=== PATIENT | male | born 1990 | race Caucasian/White ===

== ENCOUNTER 2025-01-28 08:47 | Emergency (ER) | payer BC, SELFPAY ==
[2025-01-28 08:55] VITALS: BP 150/92; PULSE 92; RESP 18; TEMP 36.8; O2SAT 99
--- NOTE | 2025-01-28 09:07 | ED.WOUNDLAC ---
HPI - Wound/Laceration General Chief Complaint: Wound/Laceration Stated Complaint: Puncture wound Right Foot Time Seen by Provider: 01/28/25 09:08 Source: patient Mode of arrival: ambulatory Limitations: no limitations History of Present Illness HPI narrative: 35 y/o male presented for c/o pain and wound to the bottom of the right foot sustained last night. States while walking outside barefoot he stepped on a garden rake. Says he cleansed the site with soap and water after the injury. Denies decreased ROM or decreased sensation. No bleeding on arrival. Unsure of last tetanus. Related Data Allergies Allergy/AdvReac Type Severity Reaction Status Date / Time No Known Allergies Allergy Verified 01/28/25 09:06 Review of Systems Review of Systems: [facility] Comments At time of signature, I have reviewed and agree with nursing past medical, surgical, social and family history unless otherwise noted. Please see nursing chart for further information. There is no relevant family history pertinent to the presenting complaint Exam Narrative: GENERAL: Well-appearing EYES: conjunctivae clear, and EOMI. ENT: Mucous membranes moist. Oropharynx without edema, erythema or lesions. CHEST: Clear to auscultation. HEART: Regular rate and rhythm. SKIN: Warm, dry. Right plantar foot with 1cm diameter round skin avulsion, no active drainage or indication for wound closure. Tender. CMS intact. NEURO: Alert and oriented x3. Course Course Emergency Course: Patient is aware of diagnosis, understands and agrees to treatment plan. Anticipatory guidance given. Patient agrees to follow-up as directed and is aware of reasons to seek care at the emergency department. Portions of this record may have been created with voice recognition software Level of Care: Express Care Visit Vital Signs Vital signs: Vital Signs Temperature 98.2 F 01/28/25 08:55 Pulse Rate 92 01/28/25 08:55 Respiratory Rate 18 01/28/25 08:55 Blood Pressure 150/92 H 01/28/25 08:55 Pulse Oximetry 99 01/28/25 08:55 Oxygen Delivery Room Air 01/28/25 08:55 Temperature 98.2 F 01/28/25 08:55 Pulse Rate 92 01/28/25 08:55 Respiratory Rate 18 01/28/25 08:55 Blood Pressure 150/92 H 01/28/25 08:55 Pulse Oximetry 99 01/28/25 08:55 Oxygen Delivery Room Air 01/28/25 08:55 Reviewed MDM - Wound/Laceration MDM Narrative Medical decision making narrative: Discussed physical exam findings c/w abrasion to the plantar surface right foot, no active drainage, no indication for wound closure. rx abx. Tetanus updated today. Wound cleansed in clinic, GERONIMO and bandaid applied. Advised supportive measures and signs/symptoms to go to the ER. Pt is appropriate for outpt treatment and f/u. Differential Diagnosis Differential diagnosis: Likely laceration, abrasion and avulsion of skin Discharge Plan Discharge Clinical Impression: Abrasion Patient Disposition: Home Condition: Stable Instructions: Antibiotic Form, Abrasion (ED) Additional Instructions: Keep the area clean and dry - cleanse at least daily with warm water and mild soap and allow to fully dry. Ok to apply neosporin to the site Keep it open to air (no bandages unless at risk for contamination or if the site is draining) Tylenol and ibuprofen every 8 hours for pain. Keep your foot up, rest. Do not walk barefoot. Take the antibiotic as directed Tetanus updated today. Watch for worsening symptoms including pain, redness, swelling, streaking, pus/drainage, fever. Go to the ER with any of these symptoms or concerns. Follow up with primary care provider in 1-2 weeks Patient Language: [place] Prescriptions: New cephalexin 500 mg capsule 500 mg PO Q8H 7 Days Qty: 21 0RF ibuprofen 800 mg tablet 800 mg PO TID PRN (Reason: pain) Qty: 15 0RF Follow-up/Referrals: PHYSICIAN,INDUSTRIAL MAINTENANCE MANAGER [Primary Care Provider] - Stand Alone Forms: Work/School Release IP Time of Disposition: :
[2025-01-28] MEDS: TETANUS,DIPHTHERIA,AC PERTUSSIS ADULT (0.5 ML) BOOSTRIX IM (09:17)
--- OUTSIDE RECORDS SUMMARY | 2025-01-28 09:17 | XMS_ITS | Continuity of Care Document ---
Author Organization [facility] Address [address] [place] [address] Phone Care Team Providers Care Gun Stock Maker Name Role Phone Duc Stafford MD Unavailable Unavailable Allergies, Adverse Reactions, Alerts Substance Reaction Status Criticality No Known Allergies Active No Inform ation Medications Medication Instructions Dosage Effective Dates (start - stop) Status Comments acyclovir 400 mg tablet take 1 tablet by oral route 2 times daily for recurrent herpes - Active acyclovir 400 mg tablet take 1 tablet by oral route 2 times daily for recurrent herpes - No Longer Active Procedures Procedure Date OFFICE/OUTPATIENT VISIT, EST OFFICE/OUTPATIENT VISIT, EST OFFICE/OUTPATIENT VISIT, EST OFFICE/OUTPATIENT VISIT, [facility] Advance Directives Directive Yes / No Effective Date File Name No Information Encounters Encounter Description Practice Location Reason(s) For Visit Diagnoses Date Provider Providers Copied on Encounter OFFICE/OUTPA TIENT VISIT, [facility], [address] [place] [address], [id number], tel:[phone] [facility] CHECK UP (chief complaint) Wellness Visit (chief complaint) Recurrent HSV (herpes simplex virus)Encounter for adult health maintenance exam w/ abnormal findingsEncounter for screening for cardiovascular disordersEncounter for screening for diabetes mellitusTobacco chew use 9 Rivera Xavier. [address] [place] [address], [address], [place]. tel: [phone] OFFICE/OUTPA TIENT VISIT, [facility], [address] [place] [address], [facility], tel: [phone] [facility] MED REFILLS (chief complaint) Needs refill of Acyclovir (chief complaint) Herpesviral infection, unspecified 7 Rivera Xavier. [address] [place] [address], [address] [place] [address]. tel: [phone] OFFICE/OUTPA TIENT VISIT, [facility], [address] [place] [address], [facility], tel: [phone] [facility] sick (chief complaint) Acute sinusitis, unspecified 6 Rivera Xavier. [address] [place] [address], [facility], . tel: [phone] OFFICE/OUTPA TIENT VISIT, [facility], [address] [place] [address], [facility], tel: [phone] [facility] eye problem (chief complaint) Recurrent herpes simplex 4 [facility] [address] [place] [address], [facility], . tel: [phone] Family History Family Member Type Diagnosis Age At Onset Father Problem (finding) malignant neoplasm of l casey Paternal grandmother Problem (finding) Cancer, unknown Maternal grandfather Problem (finding) malignant neopl asm of lung Payers Payer name Insurance type Covered alliance party ID Authoriza tion(s) No Information Social History Type Description Quantity Date Captured Comments Alcohol Use Details beer 6 pk of beer bi-weekly Caffeine Use Details soda 24 oz per day Tobacco Use Status Never smoked tobacco 2018 Smoking Status Never smoker Non-Smoking Tobacco Use Details : No Details Available : No Details Available Sex Male Vital Signs Date / Time: Height Weight BMI Pulse Rate Blood Pressure Temperature Respiratory Rate Body Surface Area Head Circumference Head Circ. Percentile Wt./Taye. Percentile BMI percentile Pulse Ox Inhaled Ox 3:13 PM 69.00 in 76.929 kg (169.60 lbs) 25.0 5 kg/m eter (2) 69 /min 122/80 mm[Hg] 97.80 F 18 /min 98 % Chief Complaint And Reason For Visit From encounter dated '06/26/2019 15:01'. CHECK UP (chief complaint). Description: Has not been seen for 2 years, pt. now has health insurance and is here for a check up. Pt. states he is not having any problems. Wellness Visit (chief complaint). Description: Diet, exercise and activity stated to be pretty good. Colon cancer screening and PSA screening not indicated. He wears seatbelt while in a vehicle. He is a non smoker , chews tobacco, and consumes alcohol about 12 beers a week. Explained the importanceof avoidance of smoking, chewing tobacco, illicit drug use. Discussed safety at home. Discussed avoidance of unhealthy habits and accident prevention. Discussed the benefit of routine eye exam and dental follow up. Recommend proper weight management. BMI 25 with clothes on. 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 No active lesion at this point Reason For Referral Reason For Referral No Information Plan Of Treatment Date Type Action Status Future Order: Lab Order LIPID PA BHARGAVI ([id number]), Sent on: Sent Future Order: Lab Order CMP ([id number]), Se nt on: Sent History Of Present Illness Encounter Date Complaint History Of Prese nt Illness CHECK UP Has not been see n for 2 years, pt. now has health insurance and is here for a check up. Pt. states he is not having any problems. Wellness Visit Diet, exercise a nd activity stated to be pretty good. Colon cancer screening and PSA screening not indicated. He wears seatbelt while in a vehicle. He is a non smoker , chews tobacco, and consumes alcohol about 12 beers a week. Explained the importance of avoidance of smoking, chewing tobacco, illicit drug use. Discussed safety at home. Discussed avoidance of unhealthy habits and accident prevention. Discussed the benefit of routine eye exam and dental follow up. Recommend proper weight management. BMI 25 with clothes on. 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 No active lesion at this point MED REFILLS Needs refill of Acyclovir Pt her e to see Dr for refill of medication. States he is doing okay otherwise.Patient has history of recurrent herpetic lesions on the face. States that when lesions about the start, he can feel some numbness or thickness on the right side around his nose. In the past, the rashes has been extensive and actually involved his left eye. He has been taking acyclovir 400 mg twice a day supposedly for prophylactic treatment. States that his symptoms are not often enough that he needed the medication that often. We did discuss proper medication intake during an acute episode. I have asked him to come over if his symptoms are extensive.Patient is currently unemployed but is applying at the [employer]. He is an occasional drinker, no tobacco use. sick Non productive c ough, right ear feels hot, chills and fever. Sxs started 5 days ago. eye problem Pt here to see D r for problem with cold symptoms. Started gumaro 1 week ago and now has a cold sore inside nose. Was taking acylovir and ran out of medicine. Afraid it will get worse if he doesn't continue treatment.His Herpes simplex actually got on his eye one time when he was around 8 yo Functional Status Date Functional Assessmen t Pain Score 0/10 Instructions Date Instruction Additional Infor mation Proper diet, exercis e and activity. Weight management Related to Encounter for adult health maintenance exam w/ abnormal findings Avoid unhealthy habi ts. Proper ETOH intake Related to Encounter for adult health maintenance exam w/ abnormal findings Fall and accident pr evention, Vehicle safety Related to Encounter for adult health maintenance exam w/ abnormal findings Encouraged Heart healthy diet, R elated to Encounter for screening for cardiovascular disorders Risk stratification, modificatio n. Related to Encounter for screening for cardiovascular disorders Observe for medication side effe cts Related to Recurrent HSV (herpes simplex virus) Illness associated w ith continuing use discussed Related to Tobacco chew use Observe for worsening s/s Relate d to Recurrent HSV (herpes simplex virus) Take medication as directed Rela zuly to Recurrent HSV (herpes simplex virus) Benefit of exercise and weight management explained Related to Encounter for screening for diabetes mellitus Weight management Related to Enc ounter for screening for diabetes mellitus Proper diet, exercise and activi ty Related to Encounter for screening for diabetes mellitus Observe for medication side effe cts Related to Herpesviral infection, unspecified Observe for worsening s/s Relate d to Herpesviral infection, unspecified Take medication as directed Rela zuly to Herpesviral infection, unspecified Benzonatate 200mg TI D, Increae fljuid intake and rest Related to Acute sinusitis, unspecified Acyclovir refilled Related to Ac [place] sinusitis, unspecified Bactrim DS BID Related to Acute sinusitis, unspecified Acyclovir 400mg BID for prophyla xis Related to Recurrent herpes simplex Side effects discussed Related t o Recurrent herpes simplex Dose for an acute illness discus sed Related to Recurrent herpes simplex Assessments Type Assessment Date assessment Recurrent HSV (herpes simplex vi maria d) assessment Encounter for adult health maintenance exam w/ abnormal findings assessment Encounter for screening for card iovascular disorders assessment Encounter for screening for diab etes mellitus assessment Tobacco chew use Mental Status Date Cognitive Assessment Orientation - [place] ed to time, place, person, situation. Patient Care Teams Name Effective Dates (start - stop) Status Members No Information
--- OUTSIDE RECORDS SUMMARY | 2025-01-28 09:17 | XMS_ITS | Clinical Summary ---
Author Organization [facility] Address [address] [place] [address] Phone Care Team Providers Care Robotics Systems Engineer Name Role Phone Unavailable Primary Care Provider Unavailabl e Medications flu vaccine quadrivalent 2020-, 6 mo+,,PF, (Flulaval Quad [id number], PF,) 60 mcg (15 mcg x 4)/0.5 mL Syringe syringe To be administered by a pharmacist. 0.5 mL 08/05/2021 1:33 PM CDT Active Immunizations Immunization Administration Dates Next Due (PFIZER)(12 YR UP) COVID-19 VACCINE - EMERGENCY USE AUTHORIZATION, MRNA, [id number]) 30 MCG/0.3 ML IM SUSP 07/05/2021,06/16/2021 INFLUENZA VACCINE QUADRIVALENT 6 MOS UP PF IM Influenza Seasonal Unspecified Formulation IM Social History Tobacco Use Types Packs/Day Years Used Date Smoking Tobacco: Never Assessed Sex and Gender Information Value Date Recorded Sex Assigned at Not on file Legal Sex Male 6:44 PM CDT Gender Identity Not on file Sexual Orientation Not on file Plan of Treatment Health Maintenance Due Date Last Done Comments DTAP/TDAP/TD VACCINES (1 - Tdap) 01/03/2007 HEPATITIS B VACCINES (1 of 3 - 19+ 3-dose series) 01/03/2007 INFLUENZA VACCINE (#1) 2024 2, 08/05/2021 COVID-19 Vaccine (3 - 2023- season) 2024 07/05/2021, 06/16/2021 HPV VACCINES Aged Out No longer eligi ble based on patient's age to complete this topic Insurance RX MEDIMPACT Member Subscriber Plan / Payer (Ef fective for All Dates) Name:Lul Magaña Relation to Subscriber:Self Name:Lul Magaña Payer ID:Not on file Group ID:[id number] Type:RX Commercial Address: [address]
--- OUTSIDE RECORDS SUMMARY | 2025-01-28 09:29 | XMS_ITS | Clinical Summary ---
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 Gender Identity Not on file Sexual Orientation Not on file Last Filed Vital Signs Vital Sign Reading Time Taken Comments Blood Pressure 127/80 03/21/2011 9:45 AM CDT Pulse 60 03/21/2011 9:45 AM CDT Temperature - - Respiratory Rate - - Oxygen Saturation - - Inhaled Oxygen Concentration - - Weight 88.9 kg (196 lb) 03/21/2011 9:45 AM CDT Height 177.8 cm (5' 10 ) 03/21/2011 9:45 AM CDT Body Mass Index 28.12 03/21/2011 9:45 AM CDT Plan of Treatment Health Maintenance Due Date Last Done Comments Annual Physical 01/03/1991 Hepatitis C 01/03/2006 DTaP, Tdap and Td Vaccines ( 1 - Tdap) 01/03/2007 Hepatitis B Vaccines (1 of 3 - 19+ 3-dose series) 01/03/2007 COVID-19 Vaccine ( - 2023-2 5 season) 2024 HPV Vaccines Aged Out No longer eligi ble based on patient's age to complete this topic Meningococcal B Vaccine Aged Out No l onger eligible based on patient's age to complete this topic Meningococcal Vaccine Aged Out No jignesh [place] eligible based on patient's age to complete this topic Pneumococcal Vaccine: Pediat rics (0 to 5 Years) and At-Risk Patients (6 to 49 Years) Aged Out No longer eligible b ased on patient's age to complete this topic RSV Immunizations Under 20 Months Aged Out No longer eligible based on patient's age to complete this topic
--- OUTSIDE RECORDS SUMMARY | 2025-01-28 09:29 | XMS_ITS | Continuity of Care Document ---
Author Organization [facility] Address [address] [place] [address] Phone Care Team Providers Care Chemical Tester Name Role Phone Duc Stafford MD Unavailable [...] VISIT, EST OFFICE/OUTPATIENT VISIT, EST OFFICE/OUTPATIENT VISIT, [facility] Advance Directives Directive Yes / No Effective Date File Name No Information Encounters Encounter Description Practice Location Reason(s) For Visit Diagnoses Date Provider Providers Copied on Encounter OFFICE/OUTPA TIENT VISIT, [facility], [address] [place] [address], [address], tel:[phone] [facility] CHECK UP (chief complaint) Wellness Visit (chief complaint) Recurrent HSV (herpes simplex virus)Encounter for adult health maintenance exam w/ abnormal findingsEncounter for screening for cardiovascular disordersEncounter for screening for diabetes mellitusTobacco chew use 9 Rivera Xavier. [address] [place] [address], [address], [place]. tel: [phone] OFFICE/OUTPA TIENT VISIT, [facility] [place], [address] [place] [address], [facility], tel: [phone] [facility] MED REFILLS (chief complaint) Needs refill of Acyclovir (chief complaint) Herpesviral infection, unspecified 7 Rivera Xavier. [address] [place] [address], [address] [place] [address]. tel: [phone] OFFICE/OUTPA TIENT VISIT, [facility], [address] [place] [address], [facility], tel: [phone] [facility] sick (chief complaint) Acute sinusitis, unspecified 6 Rivera Xavier. [address] [place] [address], [facility], . tel: [phone] OFFICE/OUTPA TIENT VISIT, [facility], [address] [place] [address], [facility], tel: [phone] [facility] eye problem (chief complaint) Recurrent herpes simplex 4 [facility] [address] [place] [address], [facility], . tel: [phone] Family History Family Member Type Diagnosis Age At Onset Father Problem (finding) malignant neoplasm of l casey Paternal grandmother Problem (finding) Cancer, unknown Maternal grandfather Problem (finding) malignant neopl asm of lung Payers Payer name Insurance type Covered constitution party ID Authoriza tion(s) No Information Social [...] Future Order: Lab Order LIPID PA BHARGAVI ([id number]), Sent on: Sent Future Order: Lab Order CMP ([id number]), Se nt on: Sent History Of Present Illness Encounter Date Complaint History Of Prese nt Illness Wellness Visit Diet, exercise a nd activity [...] suppression. No active lesion at this point CHECK UP Has not been see n for 2 years, pt. now has health insurance and is here for a check up. Pt. states he is not having any problems. Needs refill of Acyclovir Pt her e [...] is an occasional drinker, no tobacco use. MED REFILLS sick Non productive c ough, right ear [...] to Encounter for screening for cardiovascular disorders Proper diet, exercise and activi ty Related to Encounter for screening for diabetes mellitus Weight management Related to Enc ounter for screening for diabetes mellitus Benefit of exercise and weight management explained Related to Encounter for screening for diabetes mellitus Take medication as directed Rela zuly to Recurrent HSV (herpes simplex virus) Observe for worsening s/s Relate d to Recurrent HSV (herpes simplex virus) Observe for medication side effe cts Related to Recurrent HSV (herpes simplex virus) Illness associated w ith continuing use discussed Related to Tobacco chew use Take medication as directed Rela zuly to Herpesviral infection, unspecified Observe for worsening s/s Relate d to Herpesviral infection, unspecified Observe for medication side effe cts Related to Herpesviral infection, unspecified Bactrim DS BID Related to Acute sinusitis, unspecified Benzonatate 200mg TI D, Increae fljuid intake and rest Related to Acute sinusitis, unspecified Acyclovir refilled Related to Ac [place] sinusitis, unspecified Dose for an acute illness discus sed Related to Recurrent herpes simplex Side effects discussed Related t o Recurrent herpes simplex Acyclovir 400mg BID for prophyla xis Related to Recurrent herpes simplex Assessments Type Assessment Date assessment Recurrent HSV (herpes simplex vi maria d) assessment Encounter for adult health maintenance exam w/ abnormal findings assessment Encounter for screening for card iovascular disorders assessment Encounter for screening for diab etes mellitus assessment Tobacco chew use Mental Status Date Cognitive Assessment Orientation - [place] ed to time, place, person, situation. Patient Care Teams Name Effective Dates (start - stop) Status Members No Information
== END 2025-01-28 09:30 | disposition home or self-care (01) ==
PROVIDERS: Emergency Provider Nurse Practitioner Family
DX: S90.811A Abrasion, right foot, initial encounter (principal); W22.8XXA Striking against or struck by other objects, initial encounter; Z23 Encounter for immunization
CPT/HCPCS: 90471; 90715; 99213; G0463